=== PATIENT | female | born 1950 | race Caucasian/White ===

== ENCOUNTER 2017-01-07 08:16 | Inpatient (IN) | payer OTHER ==
[2016-12-22 12:45] VITALS: BMI 48.0
--- NOTE | 2016-12-22 13:19 | PAT Medication Instructions ---
Service Date December 22, 2016. Current Home Medication List Cholecalciferol (Vitamin D3), 2 TAB PO HS Coenzyme Q10 (Ubidecarenone) (Coq10), 1 CAP PO QAM Cyanocobalamin (Vitamin B-12), 250 MCG PO QAM Diclofenac W/ Misoprostol (Arthrotec), 1 TAB PO BID Esomeprazole Magnesium (Nexium), 40 MG PO QAM Hydrocodone/Acetaminophen 5MG/325MG ([place] 5MG/325MG), 1-2 TAB PO q4-6 PRN for Pain Levothyroxine Sodium (Levothyroxine Sodium), 1 TAB PO DAILY Melatonin (Melatonin Maximum Strengt), 1 TAB PO HS PRN for Insomnia Rosuvastatin Calcium (Crestor), 5 MG PO HS Spironolactone (Aldactone), 25 MG PO DAILY PRN for PRN [Hair Skin Nails], 1 TAB PO QAM Medication Instructions For Your Scheduled Surgery - Hold the following medications 2 weeks prior to surgery: Hair Skin Nails, 1 TAB PO QAM Coenzyme Q10 (Ubidecarenone) (Coq10), 1 CAP PO QAM - Hold the following medications 7-10 days prior to surgery: Diclofenac W/ Misoprostol (Arthrotec), 1 TAB PO BID - Hold the following medications the morning of surgery: Spironolactone (Aldactone), 25 MG PO DAILY PRN for PRN Cyanocobalamin (Vitamin B-12), 250 MCG PO QAM - Take the following medications the morning of surgery with a sip of water: Levothyroxine Sodium (Levothyroxine Sodium), 1 TAB PO DAILY Hydrocodone/Acetaminophen 5MG/325MG ([place] 5MG/325MG), 1-2 TAB PO q4-6 PRN for Pain (can take up to four hours prior to surgery if needed) Esomeprazole Magnesium (Nexium), 40 MG PO QAM - Take the following medications as scheduled the night before surgery: Rosuvastatin Calcium (Crestor), 5 MG PO HS Melatonin (Melatonin Maximum Strengt), 1 TAB PO HS PRN for Insomnia Hydrocodone/Acetaminophen 5MG/325MG ([place] 5MG/325MG), 1-2 TAB PO q4-6 PRN for Pain Cholecalciferol (Vitamin D3), 2 TAB PO HS If you have any questions please call us at [phone] or [phone] ( [place]) or [phone]
[2016-12-22 13:51] LABS: BASO % 0.5 %; BASO ABS # 0.03 K/uL (0-0.2); COMPLETE YES; EOS % 4.4 %; IG% 0.2 %; LYMPH % 22.6 %; LYMPH ABS # 1.39 K/uL (1.2-3.4); MEAN CELL VOLUME 79.4 fL (80-100); MEAN CORPUSCULAR HEMOGLOBIN 24.6 pg (25-34); MEAN PLATELET VOLUME 9.7 fL (7.4-10.4); MONO % 11.4 %; NEUT % 60.9 %; PLATELET COUNT 252 K/uL (130-400); RED BLOOD COUNT 4.91 M/uL (4.2-5.4); WHITE BLOOD COUNT 6.16 K/uL (4.8-10.8)
--- NOTE | 2016-12-22 13:55 | DIAGNOSTIC IMAGING REPORT ---
CHEST 2 VIEWS ROUTINE HISTORY: Preop. COMPARISON: None. FINDINGS: The lungs are clear. Cardiac silhouette is normal in size. No pleural effusions. No pneumothorax. Cholecystectomy. Prior gastric lap band procedure. IMPRESSION: No significant change compared to the prior study. No acute process. Electronically signed by: Robles Lorenz M.D. 12/22/2016 1:54 PM Dictated Date/Time: 12/22/2016 1:52 PM
[2016-12-22 14:09] LABS: URINE APPEARANCE CLEAR (CLEAR); URINE BILIRUBIN NEG (NEG); URINE COLOR YELLOW; URINE NITRITE NEG (NEG); URINE SPECIFIC GRAVITY 1.019 (1.000-1.030); UROBILINOGEN NEG (NEG)
[2016-12-22 14:11] LABS: MANUAL MICROSCOPIC REQUIRED? NO; REVIEW REQ? NO
[2016-12-22 14:48] LABS: BUN/CREATININE RATIO 22.1 (10-20); CALCIUM 8.8 mg/dl (8.5-10.1); CREATININE 0.92 mg/dl (0.60-1.20); POTASSIUM 4.9 mmol/L (3.5-5.1)
[2017-01-07] VITALS (9 sets, daily range): BP systolic 101–159; BP diastolic 61–89; PULSE 62–97; TEMP 36.1–36.9; O2SAT 94–99; Ht 165.1 cm; Wt 131.8 kg
[~2017-01-07] VITALS: Ht 165.1 cm; Wt 131.8 kg
[~2017-01-07 08:16] MED LIST: CEFAZOLIN 3000 MG/65 ML D5W IV SCH; CHOL20007 PO; COEN1CAP7 PO; CYAN250T PO; DICLTAB4 PO; HAIR SKIN NAILS PO; HYDR-5688 PO; LACTATED RINGER'S 1000ML 1,000 ML IV SCH; LEVO100T7 PO; MELATAB2 PO; NXM/40 PO; ROSU5TAB PO; SPIR25TA PO
[2017-01-07] MEDS ORDERED: EpHEDrine SULFATE INJ 50 MG/ML AMP IV PRN (10:30)
[2017-01-07] MEDS ORDERED: ATROPINE SULFATE 0.1 MG/ML 5ML SYR IV PRN (10:30)
[2017-01-07] MEDS ORDERED: HYDROmorphone INJ 1 MG/ML SYR IV PRN (10:30)
[2017-01-07] MEDS ORDERED: ONDANSETRON INJ 2 MG/ML 2 ML VIAL IV PRN ×2 (10:30→14:00)
[2017-01-07] MEDS ORDERED: PROMETHAZINE HCL INJ 6.25 MG in SODIUM CHLORIDE 0.9% 50ML 50 ML IV PRN (10:30)
--- NOTE | 2017-01-07 10:44 | History & Physical Bridge Note ---
H&P Re-Evaluation Bridge Note: I have examined the patient, reviewed the History & Physical and in the interval since the performance of the History & Physical I have noted the following changes of clinical significance: No changes noted
--- NOTE | 2017-01-07 10:45 | History and Physical ---
History & Physical Date Jan 07, 2017. Chief Complaint back and leg pain History of Present Illness The patient is a 66 year old female with complaints of Additional History Hepatic Disease: No Endocrine Disorder: No Kidney Disease: No Hypertension: No Heart Disease: No Bleeding Tendencies: No Infectious Diseases: No Allergies Coded Allergies: Iodine (Verified Allergy, Intermediate, BLISTERS, 01/07/17) Fish (Verified Allergy, Unknown, TOLD TO AVOID DUE TO IODINE ALLERGY, 01/07) NO KNOWN DRUG ALLERGIES (Verified Allergy, Unknown, NONE, 01/07/17) POLLEN (Verified Allergy, Unknown, ITCHY EYES,RUNNY NOSE, 01/07/17) Shellfish (Verified Allergy, Unknown, VOMITING, 01/07/17) Pt reported she has been told to stay away from fish/shellfish r/t iodine allergy. Reported to RD during 08/29/13 visit. Adhesives (Verified Adverse Reaction, Unknown, BLISTERS-TAPE, 01/07/17) Home Medications Scheduled Cholecalciferol (Vitamin D3), 2 TAB PO HS Coenzyme Q10 (Ubidecarenone) (Coq10), 1 CAP PO QAM Cyanocobalamin (Vitamin B-12), 250 MCG PO QAM Diclofenac W/ Misoprostol (Arthrotec), 1 TAB PO BID Esomeprazole Magnesium (Nexium), 40 MG PO QAM Levothyroxine Sodium (Levothyroxine Sodium), 1 TAB PO DAILY Rosuvastatin Calcium (Crestor), 5 MG PO HS [Hair Skin Nails], 1 TAB PO QAM Scheduled PRN Hydrocodone/Acetaminophen 5MG/325MG ([place] 5MG/325MG), 1-2 TAB PO q4-6 PRN for Pain Melatonin (Melatonin Maximum Strengt), 1 TAB PO HS PRN for Insomnia Spironolactone (Aldactone), 25 MG PO DAILY PRN for PRN Physical Examination Skin: warm/dry, no rash Eyes: normal inspection, EOMI, sclerae normal ENT: normal ENT inspection, pharynx normal Head: normocephalic, atraumatic Neck: supple, no adenopathy, trachea midline Respiratory/Chest: lungs clear, normal breath sounds, no respiratory distress Cardiovascular: regular rate, rhythm, no edema, no murmur Abdomen / GI: normal bowel sounds, non tender Back: normal inspection Extremities: normal inspection, normal range of motion Neurologic/Psych: no motor/sensory deficits, alert, normal reflexes, oriented x 3 Diagnosis lumbar stenosis Plan of Treatment removal inst L4-5 decompression fusion L2-L4
[2017-01-07] MEDS ORDERED: SODIUM CHLORIDE 0.9% PF 50 ML VIAL ONE (11:02)
[2017-01-07] MEDS ORDERED: BACITRACIN 50000 UNIT VIAL ONE (11:02)
[2017-01-07] MEDS ORDERED: BUPIVACAINE/EPINEPHRINE 0.5% MPF 1:200,000 30 ML VIAL ONE (11:04)
[2017-01-07] MEDS ORDERED: MIDAZOLAM HCL 1 MG/ML 2ML VIAL ONE (11:11)
[2017-01-07] MEDS ORDERED: FENTANYL CITRATE INJ 50 MCG/1 ML 2 ML VIAL ONE ×4 (11:11→13:56)
[2017-01-07] MEDS ORDERED: HYDROmorphone INJ 2 MG/ML SYR/VIAL ONE ×2 (11:48→13:54)
[2017-01-07] MEDS ORDERED: DEXAMETHASONE SOD INJ 4 MG/ML VIAL ONE (12:37)
[2017-01-07] MEDS ORDERED: ROCURONIUM BROMIDE 10 MG/ML 5 ML VIAL ONE (12:37)
[2017-01-07] MEDS ORDERED: PROPOFOL IV EMULSION 10 MG/ML 20 ML VIAL IV ONE (12:37)
[2017-01-07] MEDS ORDERED: LIDOCAINE HCL 2% 2 ML VIAL (20MG/ML) ONE (12:37)
[2017-01-07] MEDS ORDERED: ALBUMIN HUMAN 5% 12.5 GM/250 ML VIAL IV ONE (13:12)
[2017-01-07] MEDS ORDERED: FLOSEAL HEMOSTATIC MATRIX 10ML TOP ONE (13:52)
[2017-01-07] MEDS ORDERED: SODIUM CHLORIDE 0.9% 1000ML 1,000 ML IV SCH (13:54)
--- NOTE | 2017-01-07 13:54 | [facility] Operative Report ---
Operative Report Operative Date Jan 07, 2017. Pre-Operative Diagnosis Lumbar Stenosis Post-Operative Diagnosis same Procedure(s) Performed decomp fusion Surgeon Josef Olmos Belt Picker Surgeon(s) Deric Love PA-C Estimated Blood Loss 500ml Findings stenosis Specimens a. explanted hardware-spine I attest to the content of the Intraoperative Record and any orders documented therein. Any exceptions are noted below.
[2017-01-07] MEDS ORDERED: GLYCOPYRROLATE INJ 0.2 MG/ML VIAL ONE (13:57)
[2017-01-07] MEDS ORDERED: KETOROLAC TROMETHAMINE 30 MG/ML VIAL ONE (13:57)
[2017-01-07] MEDS ORDERED: NEOSTIGMINE METHYLSULFATE 1 MG/ML 10ML VIAL ONE (13:57)
[2017-01-07] MEDS ORDERED: ONDANSETRON INJ 2 MG/ML 2 ML VIAL ONE ×2 (13:57→14:14)
[2017-01-07] MEDS ORDERED: SOD PHOSPHATE/SOD BIPHOSPHATE ENEMA 132 ML BTL PR PRN (14:00)
[2017-01-07] MEDS ORDERED: LORAZEPAM 0.5 MG TAB PO PRN (14:00)
[2017-01-07] MEDS ORDERED: BISACODYL 10 MG SUPP PR PRN (14:00)
[2017-01-07] MEDS ORDERED: FAMOTIDINE 20 MG TAB PO PRN (14:00)
[2017-01-07] MEDS ORDERED: ALUMINUM/MAGNESIUM SUSP 30 ML UDC PO PRN (14:00)
[2017-01-07] MEDS ORDERED: ACETAMINOPHEN IV 100 ML IV PRN (14:00)
[2017-01-07] MEDS ORDERED: LORAZEPAM INJ 0.5 MG in SYRINGE 0 ML IV PRN (14:00)
[2017-01-07] MEDS ORDERED: hydrOXYzine HCL 25 MG TAB PO PRN (14:00)
[2017-01-07] MEDS ORDERED: HYDROmorphone HCL 0.5MG/ML 50 ML CASSETTE IV PRN (14:00)
[2017-01-07] MEDS ORDERED: DO NOT ADMINISTER FLU VACCINE PRN ×3 (14:00)
[2017-01-07] MEDS ORDERED: NALOXONE HCL 0.4 MG/1 ML VIAL/CARP IV PRN ×2 (14:00)
[2017-01-07] MEDS ORDERED: DO NOT ADMINISTER PNEUMOCOCCAL VACCINE PRN ×2 (14:00)
[2017-01-07] MEDS ORDERED: METOCLOPRAMIDE HCL INJ 5 MG/ML 2 ML VIAL IV PRN (14:00)
[2017-01-07] MEDS ORDERED: PROMETHAZINE HCL INJ 12.5 MG in SODIUM CHLORIDE 0.9% 50ML 50 ML IV PRN (14:00)
[2017-01-07] MEDS ORDERED: MAGNESIUM HYDROXIDE SUSP 30 ML UDC PO PRN (14:00)
[2017-01-07] MEDS ORDERED: SPIRONOLACTONE 25 MG TAB PO PRN (14:00)
--- NOTE | 2017-01-07 14:22 | DIAGNOSTIC IMAGING REPORT ---
INTRAOPERATIVE FLUOROSCOPIC IMAGES THE LUMBAR SPINE CLINICAL HISTORY: L2-4 DECOMPRESSION/FUSION/INTERBODY/REMOVE HARDWARE L4-S1 COMPARISON STUDY: Fluoroscopic images of the lumbar spine August 28, 2013. Fluoroscopy time: 25 seconds. FINDINGS: 2 fluoroscopic images demonstrating a multilevel fusion and discectomy. Exact localization is difficult given partial visualization of the lumbar spine. IMPRESSION: Fluoroscopic images from a multilevel fusion and discectomy. Electronically signed by: Neftali Manzo M.D. 01/07/2017 2:21 PM Dictated Date/Time: 01/07/2017 2:01 PM
[2017-01-07] MEDS ORDERED: HYDROmorphone HCL 0.5MG/ML 50 ML CASSETTE ONE (14:24)
[2017-01-07] MEDS: FENTANYL CITRATE INJ 50 MCG/1 ML 2 ML VIAL IV PRN ×2 (14:44→14:48)
--- NOTE | 2017-01-07 15:30 | OPERATIVE REPORT ---
DATE OF OPERATION: 01/07/2017 PREOPERATIVE DIAGNOSES: Spinal stenosis, spondylolisthesis L3-L4 and L2-L3. POSTOPERATIVE DIAGNOSES: Same. PROCEDURES PERFORMED: 1. Removal of posterior instrumentation L4-L5 and L5-S1. 2. Exploration of fusion L4-L5 and L5-S1. 3. Lumbar decompression, medial facetectomies, foraminotomies L2-L3 and L3-L4. 4. Posterior spinal fusion L2-L3 and L3-L4. 5. Placement of posterior segmental instrumentation using Orthros rods and screws L2-L3 and L3-L4. 6. Interbody fusion L3-L4. 7. Placement of PEEK cage 12 x 26 mm at L3-L4. 8. Placement of locally harvested morselized autograft posterior gutters. 9. Placement of Infuse collagen sponge combined with Mastergraft in the posterior gutters and Jennifer bone graft in the interbody space. SURGEON: Dr. Josfe Olmos. BENCH REPAIR TECHNICIAN: Deric Love PA-C. Due to the complex nature of the procedure, the entire surgery was performed with the assistant statistician of Deric Love PA-C. The medical office assistant, under direct supervision, was involved in the actual performance of all aspects of the surgical procedure including hemostasis, tissue retraction and incision, instrument management, patient positioning, and wound closure. ANESTHESIA: General. DISPOSITION: The patient awakened and taken to PACU in stable condition. HISTORY OF PATIENT'S PROBLEMS: This is a 66-year-old female who presents with above-mentioned diagnosis. After failing an extensive course of nonoperative care, elected to undergo the above-mentioned procedure. Risks, benefits, pros, cons, and alternatives were outlined in detail preoperatively. DESCRIPTION OF PROCEDURE: The patient was met with preoperatively, the case discussed and all questions were addressed. At that point, patient was taken back to operative suite and after undergoing successful general intubation by the department of anesthesia, was placed in prone position on Jarett table atop Wilfrid frame. All bony prominences were well padded and the eyes were inspected to ensure there was no external pressure placed upon them. At this point, lumbar spine was prepped and draped in normal sterile fashion. Sharp dissection with the assistance of Bovie cautery was performed down to and exposing the lamina and transverse processes of L2, L3 and instrumentation at L4, L5 and S1 levels bilaterally. I then proceeded to remove the hardware bilaterally exploring the fusion mass noting it to be intact. I then performed a complete laminectomy of L3 and L2 from a caudal to cephalad fashion addressing severe foraminal stenosis and facet hypertrophy as well as massive facet cyst at L3-L4 on the right. After complete decompression, pedicle screws were then placed in L2, L3, L4 bilaterally with the assistance of fluoroscopy and appropriate size mike provisionally placed. Through a transforaminal approach on the right, a complete discectomy of L3-L4 was performed, endplates curetted to subcortical bleeding bone and a 12 x 26 mm PEEK cage filled with Jennifer bone grafting tapped into position. The rods were then compressed, locked into final position bilaterally and the transverse processes of L2, L3, L4 burred to subcortical bleeding bone. Infuse collagen sponge combined with Mastergraft and locally harvested morselized autograft was placed in the posterior gutters. A 7 flat AURA drain was inserted. Incision was closed with 1-0 Vicryl in the fascia, 2-0 Vicryl subcutaneously, 4-0 Monocryl for final skin closure. Steri-Strips and sterile dressing placed. The patient was awakened and taken to PACU in stable condition. I attest to the content of the Intraoperative Record and any orders documented therein. Any exception s are noted below.
--- NOTE | 2017-01-07 15:31 | Anesthesiology Progress Note ---
Anesthesia Post Op Note Date & Time Jan 07, 2017 at 15:31 Vital Signs Pain Intensity: 5 Vital Signs Past 12 Hours Date Time Temp Pulse Resp B/P (MAP) Pulse Ox O2 Delivery O2 Flow Rate FiO2 01/07/17 15:22 63 13 98 01/07/17 15:22 62 13 01/07/17 15:21 112/60 01/07/17 15:20 36.4 65 16 112/60 99 Nasal Cannula 4 01/07/17 15:17 85 19 82 01/07/17 15:17 81 19 01/07/17 15:16 124/57 01/07/17 15:12 90 14 01/07/17 15:12 90 14 98 01/07/17 15:08 119/83 01/07/17 15:07 80 12 96 01/07/17 15:07 79 12 01/07/17 15:06 76/48 01/07/17 15:02 80 13 01/07/17 15:02 80 13 93 01/07/17 15:01 75 12 01/07/17 15:01 72 12 121/73 97 01/07/17 15:01 75 12 01/07/17 15:01 72 12 121/73 97 01/07/17 14:56 78 18 01/07/17 14:56 78 18 143/72 97 01/07/17 14:56 78 18 01/07/17 14:56 78 18 143/72 97 01/07/17 14:51 76 14 01/07/17 14:51 77 14 149/80 98 01/07/17 14:51 76 14 01/07/17 14:51 77 14 149/80 98 01/07/17 14:46 71 12 01/07/17 14:46 74 12 132/77 99 01/07/17 14:46 74 12 132/77 99 01/07/17 14:46 71 12 01/07/17 14:43 140/88 01/07/17 14:43 140/88 01/07/17 14:41 79 16 152/101 99 1617 14:41 79 16 152/101 99 01/07/17 14:41 79 16 01/07/17 14:41 79 16 01/07/17 14:36 88 16 165/148 97 01/07/17 14:36 89 16 01/07/17 14:36 88 16 165/148 97 01/07/17 14:36 89 16 01/07/17 14:31 87 14 143/80 99 01/07/17 14:31 88 14 01/07/17 14:31 87 14 143/80 99 01/07/17 14:31 88 14 01/07/17 14:26 86 25 159/89 99 01/07/17 14:26 86 25 01/07/17 14:26 86 25 01/07/17 14:26 86 25 159/89 99 01/07/17 14:22 157/93 01/07/17 14:22 157/93 01/07/17 14:21 36.1 82 16 157/83 98 Mask 10 01/07/17 14:21 88 94 01/07/17 14:21 88 01/07/17 14:21 88 94 01/07/17 14:21 88 01/07/17 08:37 36.5 97 20 159/89 99 Room Air Notes Mental Status: alert / awake / arousable, participated in evaluation Pt Amnestic to Procedure: Yes Nausea / Vomiting: adequately controlled Pain: adequately controlled Airway Patency, RR, SpO2: stable & adequate BP & HR: stable & adequate Hydration State: stable & adequate Anesthetic Complications: no major complications apparent
[2017-01-07] MEDS: SODIUM CHLORIDE 0.9% 1000ML 1,000 ML IV SCH (17:51)
[2017-01-07] MEDS: CEFAZOLIN IV 3,000 MG in DEXTROSE 5% 50ML 50 ML IV SCH (20:28)
[2017-01-07] MEDS: DOCUSATE SODIUM/SENNA 50/8.6MG TAB PO SCH (20:29)
[2017-01-07] MEDS: ROSUVASTATIN CALCIUM 10 MG TAB PO SCH (20:31)
[2017-01-07] MEDS: DEXAMETHASONE INJ 6 MG in SYRINGE 0 ML IV SCH (20:31)
[2017-01-08] MEDS: SODIUM CHLORIDE 0.9% 1000ML 1,000 ML IV SCH (00:19)
[2017-01-08 03:18] VITALS: BP 99/62; PULSE 64; TEMP 36.7; O2SAT 94
[2017-01-08] MEDS: CEFAZOLIN IV 3,000 MG in DEXTROSE 5% 50ML 50 ML IV SCH (03:37)
[2017-01-08] MEDS: DEXAMETHASONE INJ 6 MG in SYRINGE 0 ML IV SCH ×2 (03:38→12:52)
[2017-01-08 05:36] LABS: BASO % 0.1 %; BASO ABS # 0.01 K/uL (0-0.2); COMPLETE YES; HEMATOCRIT 32.3 % (37-47); IG% 0.2 %; LYMPH % 4.5 %; LYMPH ABS # 0.56 K/uL (1.2-3.4); MEAN CORPUSCULAR HEMOGLOBIN 24.2 pg (25-34); MEAN CORPUSCULAR HGB CONC 30.7 g/dl (32-36); MEAN PLATELET VOLUME 9.7 fL (7.4-10.4); MONO % 4.3 %; NEUT % 90.9 %; PLATELET COUNT 238 K/uL (130-400); RED BLOOD COUNT 4.09 M/uL (4.2-5.4); WHITE BLOOD COUNT 12.31 K/uL (4.8-10.8)
[2017-01-08] MEDS: LEVOTHYROXINE 100 MCG TAB PO SCH (05:41)
[2017-01-08] MEDS ORDERED: DC PCA ONE (06:00)
[2017-01-08] MEDS ORDERED: NURSING VERBAL MED ORDER ONE (06:00)
[2017-01-08] MEDS ORDERED: HYDROmorphone INJ 1 MG/ML SYR IV PRN (06:01)
[2017-01-08 06:10] LABS: BUN/CREATININE RATIO 17.7 (10-20); CALCIUM 8.4 mg/dl (8.5-10.1); CREATININE 0.77 mg/dl (0.60-1.20); POTASSIUM 4.4 mmol/L (3.5-5.1)
[2017-01-08] MEDS: OXYCODONE HCL IR 5 MG TAB (IMMEDIATE RELEASE) PO PRN ×4 (07:19→21:47)
[2017-01-08 07:59] VITALS: BP 113/65; PULSE 71; TEMP 36.8; O2SAT 95
[2017-01-08] MEDS: PANTOprazole SOD 40 MG TAB PO SCH (09:18)
--- NOTE | 2017-01-08 11:08 | PROGRESS NOTE ---
DATE: 01/08/2017 Postop day 1. Back pain is controlled. Leg pain improved. Still some pain in the right groin with hip flexion. This is not radicular in nature. Vital signs stable. T-max 36.8. AURA drained 300 mL over the last shift. Hematocrit this a.m. is 32.3. On exam, the patient is in chair at bedside. Has good strength to testing. Appears comfortable. ASSESSMENT: Status post lumbar decompression and fusion. PLAN: At this time, we will continue with physical therapy, advance her bowel regimen, anticipate home Tuesday.
[2017-01-08 11:47] VITALS: BP 120/77; PULSE 80; TEMP 36.9
[2017-01-08 12:00] VITALS: BP 120/77; PULSE 80
[2017-01-08 15:32] VITALS: BP 138/81; PULSE 85; TEMP 36.8; O2SAT 99
[2017-01-08] MEDS: DOCUSATE SODIUM/SENNA 50/8.6MG TAB PO SCH (20:34)
[2017-01-08] MEDS: ROSUVASTATIN CALCIUM 10 MG TAB PO SCH (20:35)
[2017-01-08 22:59] VITALS: BP 99/64; PULSE 86; TEMP 36.8; O2SAT 95
[2017-01-09] MEDS: POLYETHYLENE (MIRALAX) 17 GM PACK PO SCH ×3 (05:36→17:14)
[2017-01-09] MEDS: OXYCODONE HCL IR 5 MG TAB (IMMEDIATE RELEASE) PO PRN ×4 (05:36→22:40)
[2017-01-09] MEDS: LEVOTHYROXINE 100 MCG TAB PO SCH (05:36)
[2017-01-09 07:41] VITALS: BP 128/80; PULSE 82; TEMP 36.6; O2SAT 99
[2017-01-09] MEDS: PANTOprazole SOD 40 MG TAB PO SCH (09:04)
[2017-01-09] MEDS: ACETAMINOPHEN 500 MG TAB PO PRN ×2 (09:07→17:14)
[2017-01-09 15:52] VITALS: BP 125/84; PULSE 93; TEMP 36.8; O2SAT 98
[2017-01-09] MEDS: DOCUSATE SODIUM/SENNA 50/8.6MG TAB PO SCH (21:04)
[2017-01-09] MEDS: ROSUVASTATIN CALCIUM 10 MG TAB PO SCH (21:04)
[2017-01-09 22:50] VITALS: BP 112/75; PULSE 79; TEMP 36.4; O2SAT 95
[2017-01-10] MEDS ORDERED: NURSING VERBAL MED ORDER ONE (00:30)
[2017-01-10] MEDS: OXYCODONE HCL IR 5 MG TAB (IMMEDIATE RELEASE) PO PRN ×2 (04:57→09:06)
[2017-01-10] MEDS: LEVOTHYROXINE 100 MCG TAB PO SCH (05:52)
[2017-01-10 06:23] VITALS: BP 137/81; PULSE 84; TEMP 36.9; O2SAT 97
[2017-01-10] MEDS: PANTOprazole SOD 40 MG TAB PO SCH (07:25)
[2017-01-10] MEDS ORDERED: RXC5 PO (07:35)
--- NOTE | 2017-01-10 07:36 | Discharge Instructions ---
Discharge Instructions Date of Service Jan 10, 2017. Admission Reason for Admission: Spinal Stenosis Discharge Discharge Diagnosis / Problem: stenosis Discharge Goals Goal(s): Improve function Activity Recommendations Activity Limitations: per Instructions/Follow-up section . Instructions / Follow-Up Instructions / Follow-Up ACTIVITY RECOMMENDATIONS: SELF CARE INSTRUCTIONS AFTER THORACIC/LUMBAR FUSIONS 1. You may walk to your tolerance. It is good exercise for your legs and back. Expect some back and intermittent leg aches and pains. 2. You may perform "counter-top" level activities (make a sandwich, chencho with a project, etc.). 3. No bending or lifting of more than 10 pounds or back twisting of any nature (roll like a log when turning in bed). 4. You may ride in a car for 20-30 minutes at a time. No driving until after your first visit with your doctor. 5. Frequent changes of position and restricting sitting to 30 minutes at a time will help limit the amount of back spasms and stiffness you may experience. 6. You may discontinue the use of ambulatory aids (cane, crutches, etc.) once your strength and confidence allow. 7. You may cementer machine joiner the shower and let water strike your incision when you arrive home at least once daily. Do not take a tub bath, sit in a hot tub or go into a swimming pool until after your first recheck in the office. SPECIAL CARE INSTRUCTIONS: VERY IMPORTANT TO READ AND REVIEW A. Your surgical incision has been closed with a cosmetic suture under the skin that will dissolve in about 6 weeks. In 14 days, you can use a pair of clean scissors and cut the suture that is left outside of the skin at the ends of your incision. 1. The small skin tapes can be removed 7 days after surgery if they have not fallen off by that point. 2. You may keep the wound open to air as much as possible to promote healing after post-op day number 5 unless told otherwise by your doctor. 3. If you think the wound looks like it is becoming infected (redness or worsening drainage) and/or you are experiencing fever, chill or worsening back pain and muscle spasms, contact the office so that we may evaluate you as soon as possible. B. Complications are uncommon, but please contact us if you have any signs or symptoms of: 1. wound infection (fever higher than 102.5 degrees F, redness, separation of wound, drainage, or increasing pain from the incision) 2. blood clots in legs (pain, swelling, redness and warmth in legs) 3. urinary tract infection (fever higher than 102.5 degrees F, burning upon urination or increased frequency of urination) 4. nerve problems (inability to walk on your toes or heels, numbness, loss of bowel or bladder control) 5. any other symptoms that concern you C. Please call the office at if you have any concerns or questions about your operation or recovery. D. No smoking! Smoking drastically decreases the chance of a solid fusion. E. Do not take any anti-inflammatory medications (Indocin, Advil, Motrin, Aspirin, Naprosyn, etc.) as these may inhibit the chance of a solid fusion. Tylenol is okay to take for pain. MANAGING PAIN AFTER SPINAL SURGERY 1. Narcotic medication is intended for short-term use and will be provided for surgical pain. Surgical pain usually lasts for a period of 4-6 weeks. Narcotic medication includes Percocet, Vicodin, Darvocet, Tylenol #3 or Lortab. 2. Longer-term pain is more appropriately treated with non-narcotic medication such as Tylenol ES. 3. Muscle spasm is not appropriately treated with narcotics. Muscle relaxers such as Soma, Flexeril or Skelaxin can be used along with Tylenol ES. 4. Remember that we all live with some "aches and pains". This is not unusual or uncommon after an injury or as we get older. a. Back pain is expected and may include muscle spasms for 4 to 6 weeks after surgery. The pain should gradually improve. If the pain worsens for no apparent reason, please contact the office. b. Intermittent leg pain may also be experienced and should not be concerned about unless it worsens for no apparent reason. If so, please contact the office. 5. We will provide appropriate medication within the normal guidelines of their prescribed use. We will also be very cautious and aware of potential abuse and extended duration of patients' medication needs. a. Pain medications are for your comfort and to assist with sleep and rest so that the tissue can heal. They are not provided in order to return to normal activity and should not be used through the day. To do so or worsening pain at night can result from ongoing tissue damage and development of tolerance to the prescribed medicine. 6. Please allow 2-3 days to process refills. Prescriptions will not be mailed but must be picked up at the office. FOLLOW UP VISIT: Keep your scheduled follow-up appointment. Any questions, please call the office at . Current Hospital Diet Patient's current hospital diet: Regular Diet Discharge Diet Recommended Diet: Regular Diet Procedures Procedures Performed: L4-L5, L5-S1 Hardware Removal; L2-L3, L3-L4 Lumbar Laminectomy, Decompression, Pedicle Screw Fixation, Placement of Interbody Device; L2-L3, L3-L4 Posterolateral Fusion, use of gavin Allograft, Bone Morphogenetic Protein Pending Studies Studies pending at discharge: no Medical Emergencies . Who to Call and When: Medical Emergencies: If at any time you feel your situation is an emergency, please call 911 immediately. . Non-Emergent Contact Non-Emergency issues call your: Primary Care Provider . "Provider Documentation" section prepared by Josef Olmos. . VTE Core Measure Inpt VTE Proph given/why not?: Sonya Jordan, SCD's
--- NOTE | 2017-01-10 07:44 | Anesthesiology Progress Note ---
Anesthesia Post Op Note Date & Time Jan 10, 2017 at 07:34 Vital Signs Pain Intensity: 7.0 Vital Signs Past 12 Hours Date Time Temp Pulse Resp B/P (MAP) Pulse Ox O2 Delivery O2 Flow Rate FiO2 01/10/17 06:23 36.9 84 16 137/81 (99) 97 Room Air 01/09/17 23:50 Room Air 01/09/17 22:50 36.4 79 16 112/75 (87) 95 Room Air Notes Mental Status: alert / awake / arousable, participated in evaluation Pt Amnestic to Procedure: Yes Nausea / Vomiting: adequately controlled Pain: adequately controlled Airway Patency, RR, SpO2: stable & adequate BP & HR: stable & adequate Hydration State: stable & adequate Anesthetic Complications: Pt has scabbed skin tears on bilateral cheeks. Upset because she explained this had happened previously and requested paper tape be used. Educated on prone positioning and importance of securing the airway. Discussed that paper tape does not secure the ETT well enough to be used in prone positioning. Offered apology for the complications and reiterated importance of airway safety.
[2017-01-10] MEDS: ACETAMINOPHEN 500 MG TAB PO PRN (08:06)
[2017-01-10 08:51] VITALS: BP 137/81; PULSE 84; TEMP 36.9; O2SAT 97
--- NOTE | 2017-01-10 11:44 | DISCHARGE SUMMARY ---
PRINCIPAL DIAGNOSIS: Spinal stenosis. HOSPITAL COURSE FOLLOWS: On January 07 the patient underwent lumbar decompression and fusion, tolerated this well and taken to the orthopedic floor postoperatively. Postop day #1 she was up and ambulatory, progressed to postop day #2. AURA drain decreased appropriately. Pain well controlled. Subsequently on postop day #3 she was discharged home. Discharge orders and instructions found on the chart for further review.
== END 2017-01-10 11:39 | disposition home or self-care (01) | DRG 460 ==
LOC: C.ACU 08:16 → C.3E 10:25 → ENRESERV 15:35
PROVIDERS: ADMIT Orthopaedic Surgery Orthopaedic Surgery of the Spine; ATTEND Orthopaedic Surgery Orthopaedic Surgery of the Spine
PROC: 0SG10A1 (ICD-10-PCS; principal; 2017-01-07 10:15)
PROC: 0ST20ZZ Resection of Lumbar Vertebral Disc, Open Approach (ICD-10-PCS; principal; 2017-01-07 10:15)
PROC: 0SP00AZ Removal of Interbody Fusion Device from Lumbar Vertebral Joint, Open Approach (ICD-10-PCS; principal; 2017-01-07 10:15)
DX: M48.06 Spinal stenosis, lumbar region (principal); M43.16 Spondylolisthesis, lumbar region; Z79.899 Other long term (current) drug therapy